=== PATIENT | female | born 1955 | race Caucasian/White ===

== ENCOUNTER 2019-12-06 03:29 | Emergency (ER) | payer BC ==
[2019-12-06] MEDS ORDERED: Ketorolac 60 MG/2 ML SDV IM ONE (03:57)
--- NOTE | 2019-12-06 04:04 | EDM.PDOC ---
ED HPI GENERAL MEDICAL PROBLEM - General Chief Complaint: General Stated Complaint: back pain/spasms Time Seen by Provider: 12/06/19 03:57 Source of Information: Reports: Patient History Limitations: Reports: No Limitations - History of Present Illness INITIAL COMMENTS - FREE TEXT/NARRATIVE: Patient is a 64-year-old female who presents to the emergency department via private vehicle with complaint of low back pain. Patient denies any specific injury or insult. Patient states that pain has been going on for about 2 weeks , intermittently, and still bothering her and she is supposed to go to work in the morning. She is requesting a work note. Patient denies chest pain, shortness of breath, abdominal pain, nausea, vomiting, diarrhea, fever, out of area travel, flank pain, pain radiation to extremities, or lower extremity edema. 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 Constitutional: Reports: No Symptoms HEENT: Reports: No Symptoms Respiratory: Reports: No Symptoms Cardiovascular: Reports: No Symptoms Endocrine: Reports: No Symptoms GI/Abdominal: Reports: No Symptoms : Reports: No Symptoms. Denies: Dysuria, Flank Pain Musculoskeletal: Reports: Back Pain. Denies: Leg Pain Skin: Reports: No Symptoms Neurological: Reports: No Symptoms Psychiatric: Reports: No Symptoms Hematologic/Lymphatic: Reports: No Symptoms Immunologic: Reports: No Symptoms ED EXAM, GENERAL - Physical Exam Exam: See Below Exam Limited By: No Limitations General Appearance: Alert, WD/WN, No Apparent Distress Throat/Mouth: Normal Inspection, Normal Oropharynx, No Airway Compromise Head: Atraumatic, Normocephalic Neck: Normal Inspection, Supple, Non-Tender, Full Range of Motion Respiratory/Chest: No Respiratory Distress, Lungs Clear, Normal Breath Sounds, No Accessory Muscle Use, Chest Non-Tender Cardiovascular: Regular Rate, Rhythm, No Murmur GI/Abdominal: Normal Bowel Sounds, Soft, Non-Tender, No Organomegaly, No Distention, No Abnormal Bruit, No Mass, Pelvis Stable Back Exam: Paraspinal Tenderness. No: CVA Tenderness (L), CVA Tenderness (R), Decreased Range of Motion, Vertebral Tenderness Extremities: Normal Inspection, Normal Range of Motion, Non-Tender, No Pedal Edema Neurological: Alert, Oriented, Normal Cognition Psychiatric: Normal Affect, Normal Mood Skin Exam: Warm, Dry, Intact, Normal Color, No Rash Course - Orders/Labs/Meds Orders: Active Orders 24 hr Category Date Time Status Ketorolac [Toradol] Med 12/06/19 03:57 Once 60 mg IM ONETIME ONE - Re-Assessments/Exams Free Text/Narrative Re-Assessment/Exam: 12/06/19 04:05 Patient afebrile, vital signs stable, 60 mg Toradol IM given in ER. Patient given prescription for Mobic and Robaxin. Patient will follow-up with PCP 12/06/19 04:08 Departure - Departure Time of Disposition: 04:09 Disposition: Home, Self-Care 01 Condition: Good Clinical Impression: Low back pain Qualifiers: Chronicity: chronic Back pain laterality: unspecified Sciatica presence: without sciatica Qualified Code(s): M54.5 - Low back pain; G89.29 - Other chronic pain - Discharge Information Instructions: Back Exercises, [id number], Back Injury Prevention, Easy-to- Read, Acute Back Pain, Adult Referrals: Crystal Bergman NUCLEAR PHYSICIST [Primary Care Provider] - Additional Instructions: Follow-up at [facility]. Return to emergency department sooner symptoms continue or worsen. Take medication as directed. - My Orders Last 24 Hours: My Active Orders 12/06/19 03:57 Ketorolac [Toradol] 60 mg IM ONETIME ONE - Assessment/Plan Last 24 Hours: My Active Orders 12/06/19 03:57 Ketorolac [Toradol] 60 mg IM ONETIME ONE Assessment:: Low back pain Plan: Follow-up with PCP
== END 2019-12-06 04:30 | disposition home or self-care (01) ==
LOC: KA.ED 03:29
DX: G89.29 Other chronic pain (principal); M54.5 Low back pain
CPT/HCPCS: 96372; 99283; J1885

== ENCOUNTER 2019-12-17 09:17 | Emergency (ER) | payer BC ==
[2019-12-17] MEDS: Sodium Chloride 0.9% 1,000 ML IV ONE (10:29)
[2019-12-17 10:58] LABS: ANION GAP 18.6 mmol/L (5-15); CHLORIDE,CL 94 mmol/L (98-115); SODIUM,NA 131 mmol/L (136-145)
[2019-12-17] MEDS: Iopamidol 755 Mg/ML 100 ML Bottle IV ONE (11:21)
[2019-12-17] MEDS: Sodium Chloride 0.9% 50 ML IV ONE (11:21)
--- NOTE | 2019-12-17 11:54 | CT ---
[id number] CT/CT Abdomen Pelvis W IV EXAM: CT Abdomen Pelvis W IV CLINICAL DATA: ABDOMINAL/BACK PAIN. ELEVATED LIVER ENZYMES, WEAKNESS. COMPARISON STUDY: None. FINDINGS: Extensive number of hypodense lesions of varying size throughout both hepatic lobes. Findings are consistent with metastatic disease. Large retroperitoneal soft tissue mass encasing the abdominal aorta and visceral branches, including the celiac trunk, SMA, bilateral renal arteries, and SHABANA. There is also encasement of the IVC and branches as well. This does not appear however to severely stenosis the vasculature. Mass measures approximately 93 x 62 x 131 mm. There is a soft tissue mass in the right upper quadrant of the peritoneal cavity as well. Mass measures 68 x 45 x 65 mm (series 2 image 75). This appears interposed between the duodenum and pancreas. No evidence of gastric outlet obstruction, biliary tract obstruction, or pancreas duct obstruction. Hypoenhancing solid and slightly heterogeneous mass in the inferior pole the left kidney measuring 54 x 37 x 50 mm Small amount of ascites in the abdomen or pelvis. No bowel obstruction or inflammation. No pneumoperitoneum or pneumatosis. Soft tissue mass in the mediastinum adjacent to the esophagus posterior to the heart and anterior to the spinal column (series 5 image 16 series 2 image 19) measuring 34 x 19 x 85 mm. No evidence of osseous metastatic disease. IMPRESSION: Solid and hypoenhancing left renal mass, most consistent with renal cell neoplasm. Renal lymphoma is also possible. Extensive number of hypodense lesions scattered throughout both hepatic lobes consistent with hepatic metastases. Large retroperitoneal mass as well as right upper quadrant mesenteric mass encasing and displacing the adjacent vasculature and solid abdominal viscera without evidence of bowel obstruction or vascular occlusion. Partially visualized mediastinal mass extending beyond the field of view of this examination. Etiology of the retroperitoneal, mesenteric, and mediastinal masses are not entirely clear. Differential diagnosis includes metastatic disease or lymphoma. Right sided pleural effusion and atelectasis. Almas Bardales MD 12/17/19 [id number] Thank you for allowing us to participate in the care of your patient.
--- NOTE | 2019-12-17 12:19 | EDM.PDOC ---
ED HPI GENERAL MEDICAL PROBLEM - General Chief Complaint: General Stated Complaint: NO ENERGY, DIZZY, WEAK Time Seen by Provider: 12/17/19 09:30 Source of Information: Reports: Patient - History of Present Illness INITIAL COMMENTS - FREE TEXT/NARRATIVE: 64-year-old female presents to the emergency room with complaints of weakness, fatigue, low back pain and excessive thirstiness. She was seen in the emergency room over a week ago by provider for a low back complaints. She did try some chiropractic treatment which she thought initially helped. She did have a follow -up appointment with her primary care which she is seen this past Wednesday for telemedicine visit. She has been taking Mobic which she felt is been ineffective. She is also been taking ibuprofen 800 mg 3 times a day at this time. She's had some additional symptoms of weakness, fatigue she did have a COVID test which was negative. She does know [place] bit of shortness of breath and a dry cough denies any congestion.. She's been experiencing some nausea vomiting complaints had vomited twice yesterday midmorning. She's had intermittent diarrhea and not and had diarrhea symptoms 3 times yesterday. He has had the loss of appetite. She's been trying to hydrate and drinking a lot of water over the last 48 hours. She did have lab work drawn which showed urinalysis was normal and liver functions were elevated as well as alkaline phosphatase. AST was 92, ALT was 83 and alkaline phosphatase was 222. Onset: Gradual Duration: Day(s): (7-10days) Location: Reports: Abdomen, Back Quality: Reports: Ache Severity: Moderate Improves with: Reports: None Worsens with: Reports: Movement (activity) Associated Symptoms: Reports: Cough, Loss of Appetite, Malaise, Nausea/Vomiting , Weakness. 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) (Chiropractic treatments and follow- up with primary care) Left Shoulder Pain Score (Numeric/FACES): 5 - Related Data Allergies Allergy/AdvReac Type Severity Reaction Status Date / Time No Known Drug Allergies Allergy Cannot Verified 12/06/19 04:02 Remember Home Meds: Home Meds lisinopriL [Lisinopril] 10 mg PO DAILY 12/06/19 [History] Past Medical History HEENT History: Reports: None Cardiovascular History: Reports: Hypertension Respiratory History: Reports: SOB Gastrointestinal History: Reports: Other (See Below) Other Gastrointestinal History: inguinal hernia Genitourinary History: Reports: None 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: Neurological History: Reports: None Psychiatric History: Reports: None Endocrine/Metabolic History: Reports: None Hematologic History: Reports: None Immunologic History: Reports: None Oncologic (Cancer) History: Reports: None Dermatologic History: Reports: None - Infectious Disease History Infectious Disease History: Reports: None - Past Surgical History HEENT Surgical History: Reports: Tonsillectomy GI Surgical History: Reports: None Female Surgical History: Reports: Section Musculoskeletal Surgical History: Reports: None Social & Family History - Tobacco Use Smoking Status *Q: Former Smoker Used Tobacco, but Quit: Yes Month/Year Tobacco Last Used: 2009 - Caffeine Use Caffeine Use: Reports: None - Recreational Drug Use Recreational Drug Use: No ED ROS GENERAL - Review of Systems Review Of Systems: See Below Constitutional: Reports: Malaise, Weakness, Fatigue, Decreased Appetite. Denies : Weight Loss, Weight Gain HEENT: Reports: No Symptoms Respiratory: Reports: Cough. Denies: Shortness of Breath, Sputum Cardiovascular: Denies: Chest Pain, Orthopnea, Palpitations Endocrine: Reports: No Symptoms GI/Abdominal: Reports: Abdominal Pain, Diarrhea, Decreased Appetite, Nausea, Vomiting. Denies: Black Stool, Bloody Stool : Denies: Hematuria, Incontinence Musculoskeletal: Reports: Back Pain Skin: Denies: Cyanosis, Diaphoresis, Pruritis, Rash Neurological: Reports: No Symptoms Psychiatric: Reports: No Symptoms Hematologic/Lymphatic: Reports: No Symptoms Immunologic: Reports: No Symptoms ED EXAM, GENERAL - Physical Exam Exam: See Below Exam Limited By: No Limitations General Appearance: Alert, WD/WN, No Apparent Distress Eye Exam: Bilateral Eye: EOMI Ears: Hearing Grossly Normal Nose: Normal Inspection Throat/Mouth: Normal Inspection, Normal Teeth, Normal Gums, Normal Oropharynx, Normal Voice, No Airway Compromise Head: Atraumatic, Normocephalic Neck: Normal Inspection, Supple, Non-Tender, Full Range of Motion. No: Carotid Bruit, Lymphadenopathy (L), Lymphadenopathy (R) Respiratory/Chest: No Respiratory Distress, Lungs Clear, Normal Breath Sounds, No Accessory Muscle Use Cardiovascular: Normal Peripheral Pulses, Regular Rate, Rhythm Peripheral Pulses: 2+: Carotid (L), Carotid (R), Radial (L), Radial (R), Dorsalis Pedis (L), Dorsalis Pedis (R) GI/Abdominal: Normal Bowel Sounds, No Distention, Tender (tender RUQ palpation) Back Exam: Normal Inspection. No: CVA Tenderness (L), CVA Tenderness (R), Vertebral Tenderness Extremities: Normal Inspection, Normal Range of Motion, No Pedal Edema Neurological: Alert, Oriented, CN II-XII Intact, Normal Cognition, No Motor/ Sensory Deficits Psychiatric: Normal Affect, Normal Mood Skin Exam: Warm, Dry, Intact, Normal Color, No Rash EKG INTERPRETATION EKG Date: 12/17/19 Time: 10:25 Rhythm: NSR Rate (Beats/Min): 89 [place]: Normal P-Wave: Present QRS: Normal ST-T: Normal QT: Normal Comparison: NA - No Prior EKG EKG Interpretation Comments: Normal sinus rhythm normal ECG Course - Vital Signs Last Recorded V/S: Last Vital Signs Temp 98.7 F 12/17/19 11:25 Pulse 95 12/17/19 11:25 Resp 24 H 12/17/19 11:25 BP 133/74 12/17/19 11:25 Pulse Ox 96 12/17/19 12:21 - Orders/Labs/Meds Orders: Active Orders 24 hr Category Date Time Status EKG Documentation Completion [RC] ASDIRECTED Care 12/17/19 10:08 Active EKG 12 Lead [EK] Stat Ther 12/17/19 10:08 Ordered Labs: Laboratory Tests 12/17/19 12/17/19 Range/Units 10:21 10:21 WBC 6.09 (5.00-10.00) 10^3/uL RBC 4.20 (3.80-5.50) 10^6/uL Hgb 12.7 (12.0-16.0) g/dL Hct 37.5 (37.0-47.0) % MCV 89.3 (82.0-92.0) fL MCH 30.2 (27.0-31.0) pg MCHC 33.9 (32.0-36.0) g/dL RDW 12.6 (11.5-14.5) % Plt Count 122 L (150-400) 10^3/uL MPV 9.5 (7.4-10.4) fL Immature Gran % (Auto) 11.8 H (0.0-5.0) % Neut % (Auto) 47.5 L (50.0-70.0) % Lymph % (Auto) 30.9 (20.0-40.0) % [place] % (Auto) 9.2 H (2.0-8.0) % Eos % (Auto) 0.3 L (1.0-3.0) % Baso % (Auto) 0.3 (0.0-1.0) % Neut # (Auto) 2.89 (2.50-7.00) 10^3/uL Lymph # (Auto) 1.88 (1.00-4.00) 10^3/uL [place] # (Auto) 0.56 (0.10-0.80) 10^3/uL Eos # (Auto) 0.02 L (0.10-0.30) 10^3/uL Baso # (Auto) 0.02 (0.00-0.10) 10^3/uL Immature Gran # (Auto) 0.72 H (0.00-0.50) 10^3/uL WBC Morphology Comment See note Sodium 131 L (136-145) mmol/L Potassium 3.7 (3.3-5.3) mmol/L Chloride 94 L (98-115) mmol/L Carbon Dioxide 22.1 (21.0-32.0) mmol/L Anion Gap 18.6 H (5-15) mmol/L BUN 11 (6-25) mg/dL Creatinine 0.61 (0.51-1.17) mg/dL Est Cr Clr Drug Dosing 89.52 mL/min Estimated GFR (MDRD) > 60 mL/min Glucose 81 (75 - 99) mg/dL Calcium 9.1 (8.7-10.3) mg/dL Total Bilirubin 0.4 (0.2-1.0) mg/dL AST 195 H (15-37) U/L ALT 79 H (12-78) U/L Alkaline Phosphatase 232 H (46-116) IU/L Creatine Kinase 163 (26-276) U/L CK-MB (CK-2) 1.20 (0.00-4.30) ng/mL Total Protein 7.1 (6.4-8.2) g/dL Albumin 2.99 L (3.00-4.80) g/dL Lipase 228 (73-393) U/L Meds: Medications Discontinued Medications Generic Name Dose Route Start Last Admin Trade Name Chelsy PRN Reason Stop Dose Admin Sodium Chloride 1,000 mls @ 1,000 mls/hr 12/17/19 10:09 12/17/19 10:29 Normal Saline IV 12/17/19 11:08 1,000 mls/hr .BOLUS ONE Administration Sodium Chloride 50 mls @ 200 mls/min 12/17/19 10:58 12/17/19 11:21 Normal Saline IV 12/17/19 10:59 200 mls/min ONETIME ONE Administration Iopamidol 100 ml 12/17/19 10:58 12/17/19 11:21 Isovue-370 (76%) IV 12/17/19 10:59 75 ml ONETIME ONE Administration - Radiology Interpretation Free Text/Narrative:: CT the abdomen and pelvis with IV contrast: Findings: Extensive number of hypodense lesions of varying size throughout both hepatic lobes. Findings are consistent with metastatic disease. Large retroperitoneal soft tissue mass encasing the abdominal aorta and visceral branches, including the celiac trunk, SMA, bilateral renal arteries, and SHABANA. There is also encasement of the IVC and branches as well. This does not appear however to severely stenosed the vasculature. Mass measures approximately 93 x 62 x 131 mm. There is a soft tissue mass in the right upper quadrant of the peritoneal cavity as well. Mass measures 68 x 45 x [place] 5 mm. This appears interposed between the duodenum and pancreas. No evidence of gastric outlet obstruction biliary tract obstruction, or pancreas duct obstruction. Hypoenhancing solid and slightly heterogeneous mass in the inferior pole of the left kidney measuring 54x 37 x 15 mm. Small amount of ascites in the abdomen or pelvis. Follow-up distraction or inflammation. No pneumoperitoneum or pneumatosis. Soft tissue mass in the mediastinum adjacent to the esophagus posterior to the heart and anterior to the spinal column measuring 34x 19 x 85 mm. No evidence of osseous metastatic disease. Impression: Solid in hypoenhancing left renal mass, most consistent with renal cell neoplasm. Renal lymphoma is also possible. Extensive number of hypodense lesions scattered throughout both hepatic lobes consistent with hepatic metastasis. Large retroperitoneal mass as well as right upper quadrant mesenteric mass enhancing and displacing the adjacent vasculature and solid abdominal viscera without evidence of bowel obstruction or vascular occlusion. Partially visualized mediastinal mass extending beyond the [id number] of this examination. Etiology of retroperitoneal, mesenteric, and mediastinal masses are not entirely clear. Differential diagnosis includes metastatic disease or lymphoma. Right-sided pleural effusion and atelectasis. CT Results Date: 12/17/19 - Re-Assessments/Exams Free Text/Narrative Re-Assessment/Exam: 12/17/19 12:23 1 L of fluids was given normal saline. Patient is comfortable. Departure - Departure Time of Disposition: 13:20 Disposition: DC/Tfer to [facility] Access 66 Condition: Good Clinical Impression: Mass in the abdomen Qualifiers: Abdominal location: right upper quadrant Qualified Code(s): R19.01 - Right upper quadrant abdominal swelling, mass and lump - Discharge Information Referrals: Crystal Bergman, ROLL SETTER [Primary Care Provider] - Forms: ED Department Discharge Sepsis Event Note - Evaluation Sepsis Screening Result: No Definite Risk - Focused Exam Vital Signs: Vital Signs Temp Pulse Resp BP Pulse Ox 12/17/19 12:21 96 12/17/19 11:25 98.7 F 95 24 H 133/74 89 L 12/17/19 09:30 97.8 F 93 21 H 147/86 H 95 Date Exam was Performed: 12/17/19 Time Exam was Performed: 13:12 - My Orders Last 24 Hours: My Active Orders 12/17/19 10:08 EKG Documentation Completion [RC] ASDIRECTED EKG 12 Lead [EK] Stat - Assessment/Plan Last 24 Hours: My Active Orders 12/17/19 10:08 EKG Documentation Completion [RC] ASDIRECTED EKG 12 Lead [EK] Stat Assessment:: Retroperitoneal, mesenteric, and mediastinal masses. Plan: 1. Transfer to [facility] in [place]. Accepted by hospitalist on [facility] floor. Further workup pending.. 2. Discussed with the patient findings of masses seen in the abdomen and that further workup will be needed. Patient son and her RN ingredients with transfer.
== END 2019-12-17 13:20 | disposition critical access hospital (66) ==
LOC: KA.ED 09:17
DX: R19.00 Intra-abdominal and pelvic swelling, mass and lump, unspecified site (principal); J98.59 Other diseases of mediastinum, not elsewhere classified; R11.2 Nausea with vomiting, unspecified; I10 Essential (primary) hypertension; Z87.891 Personal history of nicotine dependence; Z79.899 Other long term (current) drug therapy
CPT/HCPCS: 74177; 80053; 82550; 82553; 83690; 85025; 93005; 96360; 99285-25; J7030; J7050; Q9967

== ENCOUNTER 2020-01-06 14:26 | Emergency (ER) | payer BC ==
--- NOTE | 2020-01-06 15:28 | EDM.PDOC ---
ED HPI GENERAL MEDICAL PROBLEM - General Chief Complaint: General Stated Complaint: FEVERS Time Seen by Provider: 01/06/20 15:12 Source of Information: Reports: Patient History Limitations: Reports: No Limitations - History of Present Illness INITIAL COMMENTS - FREE TEXT/NARRATIVE: Patient is a 64-year-old female who presents to the emergency department this afternoon via private vehicle with a complaint of fever. She is a non-Hodgkin's lymphoma patient who is undergoing chemotherapy. She underwent chemotherapy the last 2 days. Patient states earlier today, she felt wonderful, did chores around the house with no complaints. This afternoon she developed chills took her temperature and it was found to be 100.5. She contacted her cancer physician who advised her to present to the nearest emergency department. Patient denies chest pain, shortness of breath, cough, nausea, vomiting, abdominal pain, bowel changes, dysuria, or foul-smelling urine. Onset: Today Duration: Hour(s): Severity: Mild Improves with: Reports: None Worsens with: Reports: None Associated Symptoms: Reports: Fever/Chills - Related Data Allergies Allergy/AdvReac Type Severity Reaction Status Date / Time No Known Drug Allergies Allergy Cannot Verified 01/06/20 14:42 Remember Home Meds: Home Meds lisinopriL [Lisinopril] 10 mg PO DAILY 12/06/19 [History] Docusate Sodium/Sennosides [Senna Plus] 1 each PO DAILY PRN 01/06/20 [History] Prochlorperazine [Compazine] 10 mg PO QID PRN 01/06/20 [History] allopurinoL [Zyloprim] 300 mg PO DAILY 01/06/20 [History] ondansetron HCL [Ondansetron HCl] 8 mg PO TID PRN 01/06/20 [History] valACYclovir [Valtrex] 500 mg PO DAILY 01/06/20 [History] Past Medical History HEENT History: Reports: None Cardiovascular History: Reports: Hypertension Respiratory History: Reports: SOB Gastrointestinal History: Reports: Other (See Below) Other Gastrointestinal History: inguinal hernia Genitourinary History: Reports: None 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: Neurological History: Reports: None Psychiatric History: Reports: None Endocrine/Metabolic History: Reports: None Hematologic History: Reports: None Immunologic History: Reports: None Oncologic (Cancer) History: Reports: Non-Hodgkin's Lymphoma Dermatologic History: Reports: None - Infectious Disease History Infectious Disease History: Reports: None - Past Surgical History HEENT Surgical History: Reports: Tonsillectomy GI Surgical History: Reports: None Female Surgical History: Reports: Section Musculoskeletal Surgical History: Reports: None Social & Family History - Family History Family Medical History: Noncontributory - Tobacco Use Smoking Status *Q: Former Smoker Used Tobacco, but Quit: Yes Month/Year Tobacco Last Used: quit 10 yrs ago Second Hand Smoke Exposure: No - Caffeine Use Caffeine Use: Reports: None - Recreational Drug Use Recreational Drug Use: No ED ROS GENERAL - Review of Systems Review Of Systems: Comprehensive ROS is negative, except as noted in HPI. Constitutional: Reports: Fever, Chills HEENT: Reports: No Symptoms Respiratory: Reports: No Symptoms Cardiovascular: Reports: No Symptoms Endocrine: Reports: No Symptoms GI/Abdominal: Reports: No Symptoms : Reports: No Symptoms Musculoskeletal: Reports: No Symptoms Skin: Reports: No Symptoms Neurological: Reports: No Symptoms Psychiatric: Reports: No Symptoms Hematologic/Lymphatic: Reports: No Symptoms Immunologic: Reports: No Symptoms ED EXAM, GENERAL - Physical Exam Exam: See Below Exam Limited By: No Limitations General Appearance: Alert, WD/WN, No Apparent Distress Nose: Normal Inspection, Normal Mucosa, No Blood Throat/Mouth: Normal Inspection, Normal Oropharynx, No Airway Compromise Head: Atraumatic, Normocephalic Neck: Normal Inspection, Supple. No: Lymphadenopathy (L), Lymphadenopathy (R) Respiratory/Chest: No Respiratory Distress, Lungs Clear, Normal Breath Sounds, No Accessory Muscle Use, Chest Non-Tender Cardiovascular: No Murmur, Tachycardia GI/Abdominal: Normal Bowel Sounds, Soft, Non-Tender, No Organomegaly, No Distention, No Abnormal Bruit Back Exam: Normal Inspection. No: CVA Tenderness (L), CVA Tenderness (R) Extremities: Normal Inspection, No Pedal Edema Neurological: Alert, Oriented, Normal Cognition Psychiatric: Normal Affect, Normal Mood Skin Exam: Warm, Dry, Intact, Normal Color, No Rash Course - Vital Signs Last Recorded V/S: Last Vital Signs Temp 100.2 F 01/06/20 17:36 Pulse 97 01/06/20 18:31 Resp 18 01/06/20 18:31 BP 129/77 01/06/20 18:31 Pulse Ox 95 01/06/20 18:31 - Orders/Labs/Meds Orders: Active Orders 24 hr Category Date Time Status CULTURE BLOOD [BC] Stat Lab 01/06/20 15:04 Ordered CULTURE BLOOD [BC] Stat Lab 01/06/20 15:10 Received Blood Culture x2 Reflex Set [OM.PC] Stat Oth 01/06/20 15:03 Ordered Labs: Laboratory Tests 01/06/20 01/06/20 01/06/20 Range/Units 15:10 15:10 16:10 WBC 47.57 H* D (5.00-10.00) 10^3/uL RBC 2.88 L (3.80-5.50) 10^6/uL Hgb 8.9 L D (12.0-16.0) g/dL Hct 27.0 L (37.0-47.0) % MCV 93.8 H D (82.0-92.0) fL MCH 30.9 (27.0-31.0) pg MCHC 33.0 (32.0-36.0) g/dL RDW 15.3 H (11.5-14.5) % Plt Count 359 D (150-400) 10^3/uL MPV 9.1 (7.4-10.4) fL Immature Gran % (Auto) 9.2 H (0.0-5.0) % Neut % (Auto) 88.8 H (50.0-70.0) % Lymph % (Auto) 1.2 L (20.0-40.0) % [place] % (Auto) 0.7 L (2.0-8.0) % Eos % (Auto) 0.0 L (1.0-3.0) % Baso % (Auto) 0.1 (0.0-1.0) % Neut # (Auto) 42.24 H (2.50-7.00) 10^3/uL Lymph # (Auto) 0.58 L (1.00-4.00) 10^3/uL [place] # (Auto) 0.32 (0.10-0.80) 10^3/uL Eos # (Auto) 0.00 L (0.10-0.30) 10^3/uL Baso # (Auto) 0.07 (0.00-0.10) 10^3/uL Immature Gran # (Auto) 4.36 H (0.00-0.50) 10^3/uL Sodium 141 D (136-145) mmol/L Potassium 3.8 (3.3-5.3) mmol/L Chloride 104 (98-115) mmol/L Carbon Dioxide 27.1 (21.0-32.0) mmol/L Anion Gap 13.7 (5-15) mmol/L BUN 9 (6-25) mg/dL Creatinine 0.59 (0.51-1.17) mg/dL Est Cr Clr Drug Dosing 92.55 mL/min Estimated GFR (MDRD) > 60 mL/min Glucose 100 H (75 - 99) mg/dL Lactic Acid (0.4-2.0) mmol/L Calcium 8.3 L (8.7-10.3) mg/dL Total Bilirubin 0.3 (0.2-1.0) mg/dL AST 64 H (15-37) U/L ALT 102 H (12-78) U/L Alkaline Phosphatase 188 H (46-116) IU/L Total Protein 5.8 L (6.4-8.2) g/dL Albumin 2.99 L (3.00-4.80) g/dL Specimen Type . Urine Color Yellow (YELLOW) Urine Appearance Clear (CLEAR) Urine pH 7.0 (5.0-9.0) Ur Specific [place] 1.020 (1.005-1.030) Urine Protein Negative (NEGATIVE) mg/dL Urine Glucose (UA) Negative (NEGATIVE) mg/dL Urine Ketones Negative (NEGATIVE) mg/dL Urine Occult Blood Negative (NEGATIVE) Urine Nitrite Negative (NEGATIVE) Urine Bilirubin Negative (NEGATIVE) Urine Urobilinogen 0.2 (0.2-1.0) E.U./dL Ur Leukocyte Esterase Negative (NEGATIVE) 01/06/20 Range/Units 16:30 WBC (5.00-10.00) 10^3/uL RBC (3.80-5.50) 10^6/uL Hgb (12.0-16.0) g/dL Hct (37.0-47.0) % MCV (82.0-92.0) fL MCH (27.0-31.0) pg MCHC (32.0-36.0) g/dL RDW (11.5-14.5) % Plt Count (150-400) 10^3/uL MPV (7.4-10.4) fL Immature Gran % (Auto) (0.0-5.0) % Neut % (Auto) (50.0-70.0) % Lymph % (Auto) (20.0-40.0) % [place] % (Auto) (2.0-8.0) % Eos % (Auto) (1.0-3.0) % Baso % (Auto) (0.0-1.0) % Neut # (Auto) (2.50-7.00) 10^3/uL Lymph # (Auto) (1.00-4.00) 10^3/uL [place] # (Auto) (0.10-0.80) 10^3/uL Eos # (Auto) (0.10-0.30) 10^3/uL Baso # (Auto) (0.00-0.10) 10^3/uL Immature Gran # (Auto) (0.00-0.50) 10^3/uL Sodium (136-145) mmol/L Potassium (3.3-5.3) mmol/L Chloride (98-115) mmol/L Carbon Dioxide (21.0-32.0) mmol/L Anion Gap (5-15) mmol/L BUN (6-25) mg/dL Creatinine (0.51-1.17) mg/dL Est Cr Clr Drug Dosing mL/min Estimated GFR (MDRD) mL/min Glucose (75 - 99) mg/dL Lactic Acid 1.7 (0.4-2.0) mmol/L Calcium (8.7-10.3) mg/dL Total Bilirubin (0.2-1.0) mg/dL AST (15-37) U/L ALT (12-78) U/L Alkaline Phosphatase (46-116) IU/L Total Protein (6.4-8.2) g/dL Albumin (3.00-4.80) g/dL Specimen Type Urine Color (YELLOW) Urine Appearance (CLEAR) Urine pH (5.0-9.0) Ur Specific [place] (1.005-1.030) Urine Protein (NEGATIVE) mg/dL Urine Glucose (UA) (NEGATIVE) mg/dL Urine Ketones (NEGATIVE) mg/dL Urine Occult Blood (NEGATIVE) Urine Nitrite (NEGATIVE) Urine Bilirubin (NEGATIVE) Urine Urobilinogen (0.2-1.0) E.U./dL Ur Leukocyte Esterase (NEGATIVE) Meds: Medications Discontinued Medications Generic Name Dose Route Start Last Admin Trade Name Júniorq PRN Reason Stop Dose Admin Acetaminophen 650 mg 01/06/20 17:00 01/06/20 17:06 Tylenol PO 01/06/20 17:01 650 mg NOW ONE Administration Sodium Chloride 1,000 mls @ 125 mls/hr 01/06/20 17:15 01/06/20 17:33 Normal Saline IV 125 mls/hr ASDIRECTED CLIVE Administration Cefepime HCl 2 gm/ Sodium 50 mls @ 100 mls/hr 01/06/20 17:07 01/06/20 17:33 Chloride IV 01/06/20 17:36 100 mls/hr ONETIME ONE Administration - Radiology Interpretation Free Text/Narrative:: Chest x-ray shows no acute cardiopulmonary process, however, there is bibasilar discoid atelectasis - Re-Assessments/Exams Free Text/Narrative Re-Assessment/Exam: 01/06/20 16:50 Patient temperature remains 100.3. Patient is nontoxic appearing and in no discomfort. Discussed case with , oncology. He requested the patient be transferred to [facility] for acute care. Also discussed case with Dr. Sr, hospitalist for admission. Patient will be transferred to [facility] via ground ambulance. 01/06/20 17:00 Departure - Departure Time of Disposition: 17:01 Disposition: DC/Tfer to Acute Hospital 02 Condition: Fair Clinical Impression: Non Hodgkin's lymphoma Qualifiers: Non-Hodgkin lymphoma type: unspecified type Lymphoma site: unspecified region Qualified Code(s): C85.90 - Non-Hodgkin lymphoma, unspecified, unspecified site Leukocytosis Qualifiers: Leukocytosis type: other Qualified Code(s): D72.828 - Other elevated white blood cell count Fever Qualifiers: Fever type: unspecified Qualified Code(s): R50.9 - Fever, unspecified - Discharge Information Referrals: Crystal Bergman LIBRARY SCIENCE INSTRUCTOR [Primary Care Provider] - Forms: ED Department Discharge, Interfacility Transfer KRISTOPHER Sepsis Event Note (ED) - Evaluation Sepsis Screening Result: No Definite Risk - Focused Exam Vital Signs: Vital Signs Temp Temp Temp Pulse Resp BP Pulse Ox 01/06/20 18:31 97 18 129/77 95 01/06/20 17:36 100.2 F 01/06/20 17:19 100 18 128/71 93 L 01/06/20 17:06 100.3 F 01/06/20 16:29 101 H 18 145/85 H 94 L 01/06/20 16:26 100.3 F 97 18 140/91 H 94 L 01/06/20 14:39 100.4 F 98.0 F 115 H 20 129/90 94 L - My Orders Last 24 Hours: My Active Orders 01/06/20 15:03 Blood Culture x2 Reflex Set [OM.PC] Stat 01/06/20 15:04 CULTURE BLOOD [BC] Stat 01/06/20 15:10 CULTURE BLOOD [BC] Stat - Assessment/Plan Last 24 Hours: My Active Orders 01/06/20 15:03 Blood Culture x2 Reflex Set [OM.PC] Stat 01/06/20 15:04 CULTURE BLOOD [BC] Stat 01/06/20 15:10 CULTURE BLOOD [BC] Stat Assessment:: Leukocytosis Plan: Transfer to [facility]
--- NOTE | 2020-01-06 15:51 | CR ---
[id number] RAD/RAD Chest PA And Lateral EXAM: RAD Chest PA And Lateral CLINICAL DATA: FEVER METASTATIC DISEASE COMPARISON: NO PREVIOUS SIMILAR EXAM IS AVAILABLE. FINDINGS: Discoid atelectasis is seen at both lung bases A PICC line is seen The lungs otherwise are clear The cardiac silhouette is slightly enlarged IMPRESSION: BIBASILAR DISCOID ATELECTASIS Kt Ewing MD 01/06/20 [id number] Thank you for allowing us to participate in the care of your patient.
[2020-01-06 16:01] LABS: ANION GAP 13.7 mmol/L (5-15); CHLORIDE,CL 104 mmol/L (98-115); SODIUM,NA 141 mmol/L (136-145)
[2020-01-06] MEDS ORDERED: Acetaminophen 325 MG Tab PO ONE (17:00)
[2020-01-06] MEDS ORDERED: Cefepime 2 GM in Sodium Chloride 0.9% 50 ML IV ONE (17:07)
[2020-01-06] MEDS ORDERED: Sodium Chloride 0.9% 1,000 ML IV SCH (17:15)
== END 2020-01-06 19:15 ==
LOC: KA.ED 14:26
DX: D72.828 Other elevated white blood cell count (principal); C85.90 Non-Hodgkin lymphoma, unspecified, unspecified site; I10 Essential (primary) hypertension; Z79.899 Other long term (current) drug therapy; Z87.891 Personal history of nicotine dependence
CPT/HCPCS: 36415; 71046; 80053; 81003; 83605; 85025; 87040; 96365; 99285; A9270; J0692; J7030; J7050

== ENCOUNTER 2020-02-08 19:45 | Emergency (ER) | payer BC ==
--- NOTE | 2020-02-08 20:38 | EDM.PDOC ---
ED HPI GENERAL MEDICAL PROBLEM - General Chief Complaint: General Stated Complaint: FEVER,NEUTROPENIC Time Seen by Provider: 02/08/20 20:10 Source of Information: Reports: Patient History Limitations: Reports: No Limitations - History of Present Illness INITIAL COMMENTS - FREE TEXT/NARRATIVE: Patient presents with fever. Temp at home was 100.8 an hour ago. She has lymphoma and neutropenia. One month ago she had the same thing and was started on IV antibiotics and transferred to [place]. She had neupogen 4 days ago which she gets as needed after chemo. Initially temporal temp here was 99.3. Patient denies cough, dysuria, skin wounds or anything else she can think of as source of infection. - Related Data Allergies Allergy/AdvReac Type Severity Reaction Status Date / Time No Known Drug Allergies Allergy Cannot Verified 02/08/20 19:45 Remember Home Meds: Home Meds Prochlorperazine [Compazine] 10 mg PO QID PRN 01/06/20 [History] ondansetron HCL [Ondansetron HCl] 8 mg PO TID PRN 01/06/20 [History] valACYclovir [Valtrex] 500 mg PO DAILY 01/06/20 [History] Acetaminophen [Mapap] 650 mg PO Q4H PRN 02/08/20 [History] Calcium Carbonate [Tums] 500 mg PO QID PRN 02/08/20 [History] Chlorhexidine Gluconate [Peridex] 15 ml BUCCAL TID 02/08/20 [History] Esomeprazole [NexIUM] 40 mg PO DAILY 02/08/20 [History] Fluconazole [Diflucan] 200 mg PO DAILY 02/08/20 [History] Heparin Sodium [Heparin Lock Flush] 300 unit IV DAILY 02/08/20 [History] Sennosides/Docusate Sodium [Senna-S] 1 tab PO DAILY PRN 02/08/20 [History] Past Medical History HEENT History: Reports: None Cardiovascular History: Reports: Hypertension Respiratory History: Reports: SOB Gastrointestinal History: Reports: Other (See Below) Other Gastrointestinal History: inguinal hernia Genitourinary History: Reports: None 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: Reports: Neurological History: Reports: None Psychiatric History: Reports: None Endocrine/Metabolic History: Reports: None Hematologic History: Reports: None Immunologic History: Reports: None Oncologic (Cancer) History: Reports: Non-Hodgkin's Lymphoma Dermatologic History: Reports: None - Infectious Disease History Infectious Disease History: Reports: None - Past Surgical History HEENT Surgical History: Reports: Tonsillectomy GI Surgical History: Reports: None Female Surgical History: Reports: Section Musculoskeletal Surgical History: Reports: None Social & Family History - Family History Family Medical History: Noncontributory - Caffeine Use Caffeine Use: Reports: None ED ROS GENERAL - Review of Systems Review Of Systems: See Below Constitutional: Reports: Fever. Denies: Malaise, Weakness HEENT: Denies: Ear Pain, Throat Pain, Vision Change Respiratory: Denies: Shortness of Breath, Cough, Sputum Cardiovascular: Denies: Chest Pain, Lightheadedness, Syncope GI/Abdominal: Denies: Abdominal Pain, Constipation, Diarrhea, Nausea, Vomiting : Denies: Dysuria, Flank Pain, Hematuria Musculoskeletal: Denies: Neck Pain, Shoulder Pain, Arm Pain, Back Pain, Hand Pain, Leg Pain Skin: Denies: Cyanosis, Jaundice, Mottled, Pallor, Diaphoresis Neurological: Denies: Confusion, Dizziness, Headache, Seizure, Syncope, Trouble Speaking, Difficulty Walking Psychiatric: Denies: Agitation, Anxiety, Confusion ED EXAM, GENERAL - Physical Exam Exam: See Below Exam Limited By: No Limitations General Appearance: Alert, WD/WN, No Apparent Distress Eye Exam: Bilateral Eye: EOMI, Normal Inspection, PERRL Ears: Normal External Exam, Hearing Grossly Normal Nose: Normal Inspection, No Blood Throat/Mouth: Normal Inspection, Normal Lips, Normal Voice, No Airway Compromise Head: Atraumatic, Normocephalic Neck: Normal Inspection, Full Range of Motion Respiratory/Chest: No Respiratory Distress, Lungs Clear, Normal Breath Sounds, No Accessory Muscle Use. No: Crackles, Rales, Rhonchi, Wheezing, Stridor Cardiovascular: No Murmur, Tachycardia (regular) GI/Abdominal: Normal Bowel Sounds, Soft, Non-Tender, No Organomegaly, No Distention Back Exam: Normal Inspection, Full Range of Motion. No: CVA Tenderness (L), CVA Tenderness (R) Extremities: Normal Inspection, Normal Range of Motion, Non-Tender Neurological: Alert, Oriented, Normal Cognition, No Motor/Sensory Deficits Psychiatric: Normal Affect, Normal Mood Skin Exam: Warm, Dry, Intact, Normal Color, No Rash Course - Vital Signs Last Recorded V/S: Last Vital Signs Temp 101.6 F H 02/08/20 20:34 Pulse 112 H 02/08/20 20:45 Resp 24 H 02/08/20 20:45 BP 153/86 H 02/08/20 20:45 Pulse Ox 99 02/08/20 20:45 - Orders/Labs/Meds Orders: Active Orders 24 hr Category Date Time Status BLOOD CULTURE [MREF] Stat Lab 02/08/20 20:25 Received BLOOD CULTURE [MREF] Stat Lab 02/08/20 20:40 Received Blood Culture x2 Reflex Set [OM.PC] Stat Oth 02/08/20 20:31 Ordered Labs: Laboratory Tests 02/08/20 02/08/20 02/08/20 Range/Units 20:25 20:25 20:25 WBC 0.12 L* D (5.00-10.00) 10^3/uL RBC 2.08 L (3.80-5.50) 10^6/uL Hgb 6.6 L* D (12.0-16.0) g/dL Hct 19.8 L* (37.0-47.0) % MCV 95.2 H (82.0-92.0) fL MCH 31.7 H (27.0-31.0) pg MCHC 33.3 (32.0-36.0) g/dL RDW 18.2 H (11.5-14.5) % Plt Count 22 L* D (150-400) 10^3/uL MPV 9.2 (7.4-10.4) fL Immature Gran % (Auto) 0.0 (0.0-5.0) % Neut % (Auto) 16.7 L (50.0-70.0) % Lymph % (Auto) 83.3 H (20.0-40.0) % Cross % (Auto) 0.0 L (2.0-8.0) % Eos % (Auto) 0.0 L (1.0-3.0) % Baso % (Auto) 0.0 (0.0-1.0) % Neut # (Auto) 0.02 L (2.50-7.00) 10^3/uL Lymph # (Auto) 0.10 L (1.00-4.00) 10^3/uL Cross # (Auto) 0.00 L (0.10-0.80) 10^3/uL Eos # (Auto) 0.00 L (0.10-0.30) 10^3/uL Baso # (Auto) 0.00 (0.00-0.10) 10^3/uL Immature Gran # (Auto) 0.00 (0.00-0.50) 10^3/uL Sodium 141 (136-145) mmol/L Potassium 3.3 (3.3-5.3) mmol/L Chloride 105 (98-115) mmol/L Carbon Dioxide 24.2 (21.0-32.0) mmol/L Anion Gap 15.1 H (5-15) mmol/L BUN 8 (6-25) mg/dL Creatinine 0.61 (0.51-1.17) mg/dL Est Cr Clr Drug Dosing 89.52 mL/min Estimated GFR (MDRD) > 60 mL/min Glucose 147 H (75 - 99) mg/dL Lactic Acid 1.9 (0.4-2.0) mmol/L Calcium 8.0 L (8.7-10.3) mg/dL C-Reactive Protein 7.4 H (0.0-0.9) mg/dL Specimen Type Urine Color (YELLOW) Urine Appearance (CLEAR) Urine pH (5.0-9.0) Ur Specific [place] (1.005-1.030) Urine Protein (NEGATIVE) mg/dL Urine Glucose (UA) (NEGATIVE) mg/dL Urine Ketones (NEGATIVE) mg/dL Urine Occult Blood (NEGATIVE) Urine Nitrite (NEGATIVE) Urine Bilirubin (NEGATIVE) Urine Urobilinogen (0.2-1.0) E.U./dL Ur Leukocyte Esterase (NEGATIVE) Urine RBC (0-5) /HPF Urine WBC (0-5) /HPF Ur Epithelial Cells /LPF Urine Bacteria (NONE TO FEW) /HPF 02/08/20 Range/Units 20:43 WBC (5.00-10.00) 10^3/uL RBC (3.80-5.50) 10^6/uL Hgb (12.0-16.0) g/dL Hct (37.0-47.0) % MCV (82.0-92.0) fL MCH (27.0-31.0) pg MCHC (32.0-36.0) g/dL RDW (11.5-14.5) % Plt Count (150-400) 10^3/uL MPV (7.4-10.4) fL Immature Gran % (Auto) (0.0-5.0) % Neut % (Auto) (50.0-70.0) % Lymph % (Auto) (20.0-40.0) % Cross % (Auto) (2.0-8.0) % Eos % (Auto) (1.0-3.0) % Baso % (Auto) (0.0-1.0) % Neut # (Auto) (2.50-7.00) 10^3/uL Lymph # (Auto) (1.00-4.00) 10^3/uL Cross # (Auto) (0.10-0.80) 10^3/uL Eos # (Auto) (0.10-0.30) 10^3/uL Baso # (Auto) (0.00-0.10) 10^3/uL Immature Gran # (Auto) (0.00-0.50) 10^3/uL Sodium (136-145) mmol/L Potassium (3.3-5.3) mmol/L Chloride (98-115) mmol/L Carbon Dioxide (21.0-32.0) mmol/L Anion Gap (5-15) mmol/L BUN (6-25) mg/dL Creatinine (0.51-1.17) mg/dL Est Cr Clr Drug Dosing mL/min Estimated GFR (MDRD) mL/min Glucose (75 - 99) mg/dL Lactic Acid (0.4-2.0) mmol/L Calcium (8.7-10.3) mg/dL C-Reactive Protein (0.0-0.9) mg/dL Specimen Type Urinblad Urine Color Light yellow (YELLOW) Urine Appearance Clear (CLEAR) Urine pH 6.0 (5.0-9.0) Ur Specific [place] 1.020 (1.005-1.030) Urine Protein Negative (NEGATIVE) mg/dL Urine Glucose (UA) Negative (NEGATIVE) mg/dL Urine Ketones Negative (NEGATIVE) mg/dL Urine Occult Blood Negative (NEGATIVE) Urine Nitrite Negative (NEGATIVE) Urine Bilirubin Negative (NEGATIVE) Urine Urobilinogen 0.2 (0.2-1.0) E.U./dL Ur Leukocyte Esterase Negative (NEGATIVE) Urine RBC 0-5 (0-5) /HPF Urine WBC 5-10 H (0-5) /HPF Ur Epithelial Cells Moderate H /LPF Urine Bacteria Occasional (NONE TO FEW) /HPF Meds: Medications Discontinued Medications Generic Name Dose Route Start Last Admin Trade Name Freq PRN Reason Stop Dose Admin Cefepime HCl 2 gm 02/08/20 20:58 02/08/20 21:15 Maxipime IVPUSH 02/08/20 20:59 2 gm ONETIME ONE Administration Sodium Chloride 1,000 mls @ 999 mls/hr 02/08/20 20:50 02/08/20 21:24 Normal Saline IV 02/08/20 21:50 999 mls/hr .BOLUS ONE Administration Vancomycin HCl 1 gm/ Sodium 250 mls @ 167 mls/hr 02/08/20 20:59 02/08/20 21:51 Chloride IV 02/08/20 22:28 167 mls/hr ONETIME ONE Administration Sodium Chloride 1,000 mls @ 999 mls/hr 02/08/20 21:08 Normal Saline IV 02/08/20 22:08 .BOLUS ONE - Re-Assessments/Exams Free Text/Narrative Re-Assessment/Exam: 02/08/20 20:38 I requested oral temp which is 102.5; compared with another temporal is 100.2, tympanic 101.6. 02/08/20 21:03 WBC is 0.12, platelets 22. I discussed case with hospitalist, Dr. Mitchell in [place] who accepted for transfer and agreed with Cefepime/Vanco now with fluid bolus. Discussed findings and treatment plan with patient. The transfer will be delayed about 2 hours due to EMS crew currently en route to [place] with another patient. 02/08/20 21:26 Cefepime is in and NS bolus is running. BP is 131/62. Patient is stable. Vanco will be started now. 02/08/20 23:27 Patient doing well. Still waiting for EMS crew from [place]. Departure - Departure Time of Disposition: 23:28 Disposition: DC/Tfer to Acute Hospital 02 Condition: Good Clinical Impression: Neutropenic fever, Lymphoma, Chemotherapy induced neutropenia - Discharge Information Referrals: Erlandson,Crystal E, APPLIANCE INSTALLER [Primary Care Provider] - Forms: ED Department Discharge Sepsis Event Note (ED) - Focused Exam Vital Signs: Vital Signs Temp Temp Temp Pulse Resp BP Pulse Ox 02/08/20 20:45 112 H 24 H 153/86 H 99 02/08/20 20:34 101.6 F H 02/08/20 20:30 100.2 F 02/08/20 20:23 102.5 F H 02/08/20 20:00 99.3 F 111 H 25 H 133/59 L 97 - My Orders Last 24 Hours: My Active Orders 02/08/20 20:25 BLOOD CULTURE [MREF] Stat 02/08/20 20:31 Blood Culture x2 Reflex Set [OM.PC] Stat 02/08/20 20:40 BLOOD CULTURE [MREF] Stat - Assessment/Plan Last 24 Hours: My Active Orders 02/08/20 20:25 BLOOD CULTURE [MREF] Stat 02/08/20 20:31 Blood Culture x2 Reflex Set [OM.PC] Stat 02/08/20 20:40 BLOOD CULTURE [MREF] Stat
[2020-02-08 21:01] LABS: ANION GAP 15.1 mmol/L (5-15); CHLORIDE,CL 105 mmol/L (98-115); SODIUM,NA 141 mmol/L (136-145)
[2020-02-08] MEDS: Cefepime 2 GM Vial IVPUSH ONE (21:15)
[2020-02-08] MEDS: Sodium Chloride 0.9% 1,000 ML IV ONE ×2 (21:24→23:42)
== END 2020-02-09 00:16 ==
LOC: SUPCPDRO 19:45 → KA.ED 19:45
DX: D70.2 Other drug-induced agranulocytosis (principal); R50.81 Fever presenting with conditions classified elsewhere; T45.1X5A Adverse effect of antineoplastic and immunosuppressive drugs, initial encounter; C85.90 Non-Hodgkin lymphoma, unspecified, unspecified site; I10 Essential (primary) hypertension; R00.0 Tachycardia, unspecified; Z98.890 Other specified postprocedural states; Z79.899 Other long term (current) drug therapy
CPT/HCPCS: 36415; 80048; 81001; 83605; 85025; 86140; 87040; 87077; 96365; 96366; 96375; 99284; 99284-25; J0692; J3370; J7030; J7050

== ENCOUNTER 2020-04-06 19:00 | Emergency (ER) | payer BC ==
--- NOTE | 2020-04-06 20:18 | EDM.PDOC ---
ED HPI GENERAL MEDICAL PROBLEM - General Stated Complaint: FEVERISH Time Seen by Provider: 04/06/20 19:36 Source of Information: Reports: Patient History Limitations: Reports: No Limitations - History of Present Illness INITIAL COMMENTS - FREE TEXT/NARRATIVE: Patient presents with fever. At home it was 100.1 and she called her oncologist who advised to go to ER for evaluation. She finished chemotherapy for lymphoma 2 weeks ago. Afterward her WBC was 0.1, then 1.1 and most recently 8.0; Hgb about 7.0. She is feeling fine but did have neutropenic fever twice while doing chemo. - Related Data Allergies Allergy/AdvReac Type Severity Reaction Status Date / Time No Known Drug Allergies Allergy Cannot Verified 04/06/20 19:39 Remember Home Meds: Home Meds Prochlorperazine [Compazine] 10 mg PO QID PRN 01/06/20 [History] ondansetron HCL [Ondansetron HCl] 8 mg PO TID PRN 01/06/20 [History] valACYclovir [Valtrex] 500 mg PO DAILY 01/06/20 [History] Calcium Carbonate [Tums] 500 mg PO QID PRN 02/08/20 [History] Chlorhexidine Gluconate [Peridex] 15 ml BUCCAL TID 02/08/20 [History] Esomeprazole [NexIUM] 40 mg PO DAILY 02/08/20 [History] Sennosides/Docusate Sodium [Senna-S] 1 tab PO DAILY PRN 02/08/20 [History] Past Medical History HEENT History: Reports: Impaired Vision Cardiovascular History: Reports: High Cholesterol, Hypertension Respiratory History: Reports: SOB, Other (See Below) Other Respiratory History: h/o tobacco use Gastrointestinal History: Reports: Other (See Below) Other Gastrointestinal History: inguinal hernia Genitourinary History: Reports: Other (See Below) Other Genitourinary History: kidney mass [employer] History: Reports: Neurological History: Reports: None Psychiatric History: Reports: None Endocrine/Metabolic History: Reports: None Hematologic History: Reports: Blood Transfusion(s) Immunologic History: Reports: Immunosuppression Oncologic (Cancer) History: Reports: Non-Hodgkin's Lymphoma, Other (See Below) 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 Dermatologic History: Reports: None - Infectious Disease History Infectious Disease History: Reports: None - Past Surgical History HEENT Surgical History: Reports: Tonsillectomy GI Surgical History: Reports: Other (See Below) Other GI Surgeries/Procedures: liver mass Female Surgical History: Reports: Section Musculoskeletal Surgical History: Reports: None Social & Family History - Family History Family Medical History: Noncontributory - Tobacco Use Smoking Status *Q: Never Smoker - Caffeine Use Caffeine Use: Reports: None - Recreational Drug Use Recreational Drug Use: No ED ROS GENERAL - Review of Systems Review Of Systems: See Below Constitutional: Reports: Fever, Chills (she gets chills fairly often even without fever; seems to be associated with low Hgb for her). Denies: Malaise, Weakness HEENT: Denies: Ear Pain, Throat Pain, Vision Change Respiratory: Denies: Shortness of Breath, Cough Cardiovascular: Denies: Chest Pain, Syncope GI/Abdominal: Denies: Abdominal Pain, Diarrhea, Nausea, Vomiting : Denies: Dysuria, Flank Pain Musculoskeletal: Reports: No Symptoms Skin: Reports: No Symptoms ED EXAM, GENERAL - Physical Exam Exam: See Below Exam Limited By: No Limitations General Appearance: Alert, WD/WN, No Apparent Distress Eye Exam: Bilateral Eye: EOMI, Normal Inspection, PERRL Ears: Normal External Exam, Hearing Grossly Normal Nose: Normal Inspection, No Blood Throat/Mouth: Normal Inspection, Normal Lips, Normal Voice, No Airway Compromise Head: Atraumatic, Normocephalic Neck: Normal Inspection, Full Range of Motion Respiratory/Chest: No Respiratory Distress, Lungs Clear, Normal Breath Sounds, No Accessory Muscle Use Cardiovascular: Regular Rate, Rhythm, No Murmur GI/Abdominal: Normal Bowel Sounds, Soft, Non-Tender, No Organomegaly, No Distention Back Exam: Normal Inspection, Full Range of Motion. No: CVA Tenderness (L), CVA Tenderness (R) Extremities: Normal Inspection, Normal Range of Motion Neurological: Alert, Oriented, Normal Cognition, No Motor/Sensory Deficits Psychiatric: Normal Affect, Normal Mood Skin Exam: Warm, Dry, Intact, Normal Color, No Rash Course - Vital Signs Last Recorded V/S: Last Vital Signs Temp 99.3 F 04/06/20 19:34 Pulse 100 04/06/20 19:34 Resp 18 04/06/20 19:34 BP 139/79 04/06/20 19:34 Pulse Ox 97 04/06/20 19:34 - Orders/Labs/Meds Orders: Active Orders 24 hr Category Date Time Status RED BLOOD CELLS LP [BBK] Stat Lab 04/06/20 20:45 Received TYPE AND SCREEN [BBK] Stat Lab 04/06/20 20:23 Ordered Labs: Laboratory Tests 04/06/20 04/06/20 04/06/20 Range/Units 19:55 19:55 19:55 WBC 11.15 H D (5.00-10.00) 10^3/uL RBC 1.83 L (3.80-5.50) 10^6/uL Hgb 6.2 L* (12.0-16.0) g/dL Hct 18.1 L* (37.0-47.0) % MCV 98.9 H D (82.0-92.0) fL MCH 33.9 H (27.0-31.0) pg MCHC 34.3 (32.0-36.0) g/dL RDW 18.9 H (11.5-14.5) % Plt Count 83 L (150-400) 10^3/uL MPV 10.6 H (7.4-10.4) fL Immature Gran % (Auto) 12.6 H (0.0-5.0) % Neut % (Auto) 64.0 (50.0-70.0) % Lymph % (Auto) 5.4 L (20.0-40.0) % Harris % (Auto) 17.8 H (2.0-8.0) % Eos % (Auto) 0.1 L (1.0-3.0) % Baso % (Auto) 0.1 (0.0-1.0) % Neut # (Auto) 7.13 H (2.50-7.00) 10^3/uL Lymph # (Auto) 0.60 L (1.00-4.00) 10^3/uL Harris # (Auto) 1.99 H (0.10-0.80) 10^3/uL Eos # (Auto) 0.01 L (0.10-0.30) 10^3/uL Baso # (Auto) 0.01 (0.00-0.10) 10^3/uL Immature Gran # (Auto) 1.41 H (0.00-0.50) 10^3/uL Sodium 142 (136-145) mmol/L Potassium 4.0 (3.3-5.3) mmol/L Chloride 104 (98-115) mmol/L Carbon Dioxide 24.2 (21.0-32.0) mmol/L Anion Gap 17.8 H (5-15) mmol/L BUN 10 (6-25) mg/dL Creatinine 0.77 (0.51-1.17) mg/dL Est Cr Clr Drug Dosing 70.01 mL/min Estimated GFR (MDRD) > 60 mL/min Glucose 136 H (75 - 99) mg/dL Lactic Acid 1.5 (0.4-2.0) mmol/L Calcium 8.4 L (8.7-10.3) mg/dL - Re-Assessments/Exams Free Text/Narrative Re-Assessment/Exam: 04/06/20 20:36 WBC is 11 which is great. Hgb is low so will transfuse two units, but patient wants to wait and do that tomorrow as outpatient. We will Type and Cross tonight so it will be ready for patient tomorrow. Discussed findings and treatment plan with patient and she is discharged to home in stable condition. Departure - Departure Time of Disposition: 20:24 Disposition: Home, Self-Care 01 Condition: Good Clinical Impression: Anemia Qualifiers: Anemia type: unspecified type Qualified Code(s): D64.9 - Anemia, unspecified - Discharge Information Referrals: Harley Auguste MD [Primary Care Provider] - Additional Instructions: Plan on blood transfusion tomorrow as outpatient. Call the [facility] if we haven't called you before 11:00 AM tomorrow. Sepsis Event Note (ED) - Evaluation Sepsis Screening Result: Possible Sepsis Risk - Focused Exam Vital Signs: Vital Signs Temp Pulse Resp BP Pulse Ox 04/06/20 19:34 99.3 F 100 18 139/79 97 - My Orders Last 24 Hours: My Active Orders 04/06/20 20:23 TYPE AND SCREEN [BBK] Stat 04/06/20 20:45 RED BLOOD CELLS LP [BBK] Stat - Assessment/Plan Last 24 Hours: My Active Orders 04/06/20 20:23 TYPE AND SCREEN [BBK] Stat 04/06/20 20:45 RED BLOOD CELLS LP [BBK] Stat
[2020-04-06 20:35] LABS: ANION GAP 17.8 mmol/L (5-15); CHLORIDE,CL 104 mmol/L (98-115); SODIUM,NA 142 mmol/L (136-145)
== END 2020-04-06 21:05 | disposition home or self-care (01) ==
LOC: KA.ED 19:00
DX: D64.9 Anemia, unspecified (principal); I10 Essential (primary) hypertension; Z79.899 Other long term (current) drug therapy
CPT/HCPCS: 36415; 80048; 83605; 85025; 86850; 86900; 86901; 86920; 86922; 99283; 99284

== ENCOUNTER 2024-07-16 21:32 | Emergency (ER) | payer MEDICARE, BC ==
[2024-07-16] MEDS ORDERED: Sodium Chloride 0.9% 10 ML Syringe FLUSH PRN (21:37)
[2024-07-16 21:52] LABS: BASOPHILS ABSOLUTE AUTO 0.02 10^3/uL (0.00-0.10); BASOPHILS PERCENT AUTO 0.2 % (0.0-1.0); EOSINOPHILS ABSOLUTE AUTO 0.06 10^3/uL (0.10-0.30); EOSINOPHILS PERCENT AUTO 0.6 % (1.0-3.0); HEMATOCRIT 43.5 % (37.0-47.0); HEMOGLOBIN 14.9 g/dL (12.0-16.0); IMMATURE GRAN ABSOLUTE AUTO 0.02 10^3/uL (0.00-0.04); IMMATURE GRAN PERCENT AUTO 0.2 % (0.0-0.4); LYMPHOCYTES ABSOLUTE AUTO 2.76 10^3/uL (1.00-4.00); LYMPHOCYTES PERCENT AUTO 27.6 % (20.0-40.0); MEAN CORPUSCULAR HEMOGLOBIN 31.8 pg (27.0-31.0); MEAN CORPUSCULAR HGB CONC 34.3 g/dL (32.0-36.0); MEAN CORPUSCULAR VOLUME 92.8 fL (82.0-92.0); MEAN PLATELET VOLUME 8.5 fL (7.4-10.4); MONOCYTES ABSOLUTE AUTO 0.67 10^3/uL (0.10-0.80); MONOCYTES PERCENT AUTO 6.7 % (2.0-8.0); NEUTROPHILS ABSOLUTE AUTO 6.48 10^3/uL (2.50-7.00); NEUTROPHILS PERCENT AUTO 64.7 % (50.0-70.0); PLATELET COUNT,PLT 241 10^3/uL (150-400); RED BLOOD CELL COUNT 4.69 10^6/uL (3.80-5.50); RED CELL DISTRIBUTION WIDTH 12.3 % (11.5-14.5); WHITE BLOOD CELL COUNT,WBC 10.01 10^3/uL (5.00-10.00)
[2024-07-16] MEDS: Ondansetron 4 MG/2 ML SDV IVPUSH ONE (21:56)
[2024-07-16] MEDS: Ondansetron 4 MG/2 ML SDV ONE (22:01)
[2024-07-16 22:10] LABS: ALBUMIN 3.92 g/dL (3.40-5.00); ANION GAP 16.8 mmol/L (5-15); BILIRUBIN TOTAL 0.4 mg/dL (0.2-1.0); CALCIUM 8.5 mg/dL (8.7-10.3); CARBON DIOXIDE,CO2 26.9 mmol/L (21.0-32.0); CREATININE 0.78 mg/dL (0.51-1.17); EST CRCL DRUG DOSING (CG) 60.44 mL/min; POTASSIUM,K 3.7 mmol/L (3.5-5.1); PROTEIN TOTAL,TP 6.8 g/dL (6.4-8.2)
[2024-07-16] MEDS: hydrALAZINE 20 MG/ML SDV IVPUSH ONE (22:40)
[2024-07-16] MEDS: Meclizine 25 MG Tab PO ONE (22:44)
[2024-07-16] MEDS: Promethazine 25 MG in Sodium Chloride 0.9% 100 ML IV ONE (22:45)
== END 2024-07-16 23:41 | disposition home or self-care (01) ==
LOC: KA.ED 21:32
DX: H81.11 Benign paroxysmal vertigo, right ear (principal); R11.2 Nausea with vomiting, unspecified; R73.9 Hyperglycemia, unspecified; R29.700 NIHSS score 0; I10 Essential (primary) hypertension; Z90.89 Acquired absence of other organs; Z79.899 Other long term (current) drug therapy
CPT/HCPCS: 36415; 70450; 71045; 80053; 83605; 83880; 84484; 85025; 85379; 87040; 93005; 93010; 96365; 96375; 99284; 99285-25; A9270-GY; J0360; J2405; J2550

== ENCOUNTER 2025-01-15 15:35 | Emergency (ER) | payer MEDICARE, BC ==
[2025-01-15] MEDS ORDERED: Sodium Chloride 0.9% 10 ML Syringe FLUSH PRN (15:43)
[2025-01-15 15:59] LABS: BASOPHILS ABSOLUTE AUTO 0.03 10^3/uL (0.00-0.10); BASOPHILS PERCENT AUTO 0.4 % (0.0-1.0); EOSINOPHILS ABSOLUTE AUTO 0.11 10^3/uL (0.10-0.30); EOSINOPHILS PERCENT AUTO 1.5 % (1.0-3.0); IMMATURE GRAN ABSOLUTE AUTO 0.01 10^3/uL (0.00-0.04); IMMATURE GRAN PERCENT AUTO 0.1 % (0.0-0.4); LYMPHOCYTES ABSOLUTE AUTO 3.20 10^3/uL (1.00-4.00); LYMPHOCYTES PERCENT AUTO 42.2 % (20.0-40.0); MEAN PLATELET VOLUME 8.8 fL (7.4-10.4); MONOCYTES ABSOLUTE AUTO 0.67 10^3/uL (0.10-0.80); MONOCYTES PERCENT AUTO 8.8 % (2.0-8.0); NEUTROPHILS ABSOLUTE AUTO 3.56 10^3/uL (2.50-7.00); NEUTROPHILS PERCENT AUTO 47.0 % (50.0-70.0); PLATELET COUNT,PLT 202 10^3/uL (150-400); RED BLOOD CELL COUNT 4.99 10^6/uL (3.80-5.50); RED CELL DISTRIBUTION WIDTH 12.3 % (11.5-14.5); WHITE BLOOD CELL COUNT,WBC 7.58 10^3/uL (5.00-10.00)
[2025-01-15 16:13] LABS: ALANINE AMINOTRANSFERASE,ALT 28.0 U/L (14-63); ASPARTATE AMNIOTRANSFERASE,AST 17.0 U/L (15-37); BILIRUBIN TOTAL 0.4 mg/dL (0.2-1.0); BLOOD UREA NITROGEN,BUN 17.0 mg/dL (7-18); CARBON DIOXIDE,CO2 27.5 mmol/L (21.0-32.0); CHLORIDE,CL 106.0 mmol/L (98-107); CREATININE 0.84 mg/dL (0.51-1.17); EST CRCL DRUG DOSING (CG) 59.66 mL/min; ESTIMATED GFR 76.0 mL/min (>=60); GLUCOSE RANDOM 117.0 mg/dL (70-140); POTASSIUM,K 3.5 mmol/L (3.5-5.1); PROTEIN TOTAL,TP 6.3 g/dL (6.4-8.2); SODIUM,NA 143.0 mmol/L (136-145)
[2025-01-15 16:22] LABS: B-TYPE NATRIURETIC PEPTIDE,BNP 63.0 pg/mL (0-100)
[2025-01-15] MEDS: Ketorolac 30 MG/ML SDV IVPUSH ONE (16:35)
== END 2025-01-15 17:22 | disposition home or self-care (01) ==
LOC: KA.ED 15:35
DX: S16.1XXA Strain of muscle, fascia and tendon at neck level, initial encounter (principal); R07.89 Other chest pain; I10 Essential (primary) hypertension; E78.00 Pure hypercholesterolemia, unspecified; Z79.899 Other long term (current) drug therapy; X58.XXXA Exposure to other specified factors, initial encounter
CPT/HCPCS: 36415; 71045; 80053; 83880; 84484; 85025; 85379; 93010; 96365; 96375; 99284; 99285-25; J1885; J2800